=== PATIENT | female | born 1955 | race Caucasian/White ===

== ENCOUNTER 2016-07-13 12:26 | Day surgery (SDC) | payer OTHER ==
[~2016-07-13] VITALS: Ht 154.9 cm; Wt 77.0 kg
[~2016-07-13 12:26] MED LIST: NO HOME MEDICATIONS; ONDA4TAB11 PO; RANI150T9 PO
[2016-07-13] MEDS ORDERED: TRAMADOL (13:05)
[2016-07-13] MEDS ORDERED: FAMOTIDINE (13:05)
[2016-07-13] MEDS ORDERED: OMEPRAZOLE (13:05)
[2016-07-13 13:08] VITALS: Ht 154.9 cm; Wt 77.0 kg
[2016-07-13 13:49] VITALS: BP 145/69; PULSE 70; RESP 14
[2016-07-13] MEDS ORDERED: PROPOFOL 40 ML ONE (14:11)
[2016-07-13] MEDS ORDERED: PROPOFOL 20 ML ONE ×2 (14:49)
[2016-07-13 16:00] VITALS: BP 136/60; PULSE 60; RESP 12
--- NOTE | 2016-07-13 16:03 | GILP ---
DATE OF PROCEDURE: 07/13/2016 NAME OF PROCEDURES: 1. Esophagogastroduodenoscopy and biopsy. 2. Colonoscopy. SURGEON: Jordan Khoury MD PREOPERATIVE DIAGNOSES: 1. Chronic heartburn. 2. Screening colonoscopy. POSTOPERATIVE DIAGNOSES: 1. Gastroesophageal reflux disease. 2. Hiatal hernia. 3. Gastritis with erosions. 4. Gastric nodule in the antrum and biopsies were taken for histopathology. 5. Colonoscopy all the way to the cecum. 6. Internal hemorrhoids. 7. No colon neoplasm was identified. INDICATION FOR THE PROCEDURE: Ms. Kerry Jackson is a 61-year-old female patient who had chronic heartburn, not responding to therapy. She also needed screening colonoscopy. The procedures and possible complications were well explained to the patient, she understood and con sented to the procedure. DESCRIPTION OF PROCEDURE: Under the influence of anesthesia, the gastroscope was carefully introduc ed into the esophagus and under direct vision, it was advanced to the stomach and through the pyloru s into the duodenal bulb and descending duodenum. FINDINGS: ESOPHAGUS: The patient had gastroesophageal reflux disease. STOMACH: She had gastritis with erosions. She also had a nodule in the gastric antrum and biopsies were taken for histopathology. DUODENUM: Normal. The colonoscope was carefully introduced in the rectum and under direct vision, it was advanced all the way to the cecum. FINDINGS: The patient had internal hemorrhoids. No colon neoplasm was identified. She tolerated the procedures very well and there was no complication from the procedures. At the en d of the procedures, she was awake with stable vital signs and she was discharged home to the care o f her family. IMPRESSION: 1. Gastroesophageal reflux disease. 2. Gastritis with erosions. 3. Nodule in the gastric antrum and biopsies were taken for histopathology. 4. Colonoscopy all the way to the cecum. 5. Internal hemorrhoids. 6. No colon neoplasm was identified. PLAN: 1. Continue omeprazole and Pepcid. 2. Await histopathology report. 3. Next screening colonoscopy in 10 years. Dictated By: JORDAN ALBARRAN/JAY Conf#: [id number] DID#: [id number] CC: JORDAN KHOURY MD;*EndCC*
[2016-07-13 16:15] VITALS: BP 114/72; PULSE 66; RESP 12
== END 2016-07-13 17:32 | disposition home or self-care (01) ==
LOC: GIL 12:26
PROVIDERS: ATTEND Internal Medicine Gastroenterology
DX: Z12.11 Encounter for screening for malignant neoplasm of colon (principal); K29.50 Unspecified chronic gastritis without bleeding; K21.9 Gastro-esophageal reflux disease without esophagitis; K44.9 Diaphragmatic hernia without obstruction or gangrene; K29.60 Other gastritis without bleeding; K64.8 Other hemorrhoids; F41.9 Anxiety disorder, unspecified
CPT/HCPCS: 43239; 45378; 88305; 88312; Z7610

== ENCOUNTER 2017-01-18 19:14 | Emergency (ER) | payer OTHER ==
[~2017-01-18] VITALS: Ht 162.6 cm; Wt 80.7 kg
[~2017-01-18 19:14] MED LIST changes: +FAMOTIDINE; -NO HOME MEDICATIONS; +OMEPRAZOLE; -ONDA4TAB11 PO; -RANI150T9 PO; +TRAMADOL
[2017-01-18 19:20] VITALS: Ht 162.6 cm; Wt 80.7 kg
[2017-01-18] MEDS ORDERED: ALBUTEROL 0.083% (NEB) 2.5 MG/3 ML AMP HHN STA (21:17)
--- NOTE | 2017-01-18 21:21 | ERD ---
ER Documentation Chief Complaint Chief Complaint cough x 2 months HPI 61-year-old female presents emergency department for cough and sometimes with clear phlegm for the past 2 months. Stated that she saw her primary care physician who prescribed her with azithromycin, Flonase, TheraFlu, pro-air but she is not relieved with his medications. She is asking for a antibiotic shot, breathing treatment. Denies headache, dizziness, blurry vision, neck pain, throat pain, difficulty swallowing, shoulder pain, chest pain, chest pressure, back pain, abdominal pain, nausea, vomiting, constipation, diarrhea, loss of bowel bladder control, change in bowel bladder habits, recent travel, recent long travel, difficulty breathing when lying flat, fever, chills. ROS All systems reviewed and are negative except as per history of present illness. Medications Home Meds Active Scripts Albuterol Sulfate* (Albuterol Sulfate* Neb) 0.083%-3 Ml Neb, 2.5 MG NEB Q4 Y for SHORTNESS OF BREATH, #30 EA Prov:BIANCAJACQUESAFRSHAD 01/18/17 Ibuprofen* (Motrin*) 800 Mg Tab, 800 MG PO Q8 Y for PAIN AND OR ELEVATED TEMP, # 30 TAB Prov:FARSHAD RAY 01/18/17 Acetaminophen* (Tylophen*) 500 Mg Capsule, 1 CAP PO Q6H Y for PAIN AND OR ELEVATED TEMP, #20 CAP Prov:FARSHAD RAY 01/18/17 Albuterol Sulfate* (Proair HFA*) 8.5 Gm Hfa.aer.ad, 2 PUFF INH Q4, #1 INHALER Prov:BIANCAJACQUESFARSHAD 01/18/17 Amoxicillin/Potassium Clav (Amox-Clav 875-125 mg Tablet) 875-125 mg Tab, 1 TAB PO BID for 7 Days, #14 TAB Prov:FARSHAD RAY 01/18/17 Reported Medications [Famotidine] No Conflict Check 07/13/16 [Tramadol] No Conflict Check 07/13/16 [Omeprazole] No Conflict Check 07/13/16 Allergies Allergies: Coded Allergies: No Known Allergy (Verified Allergy, Unknown, 04/25/09) PMhx/Soc History of Surgery: Yes () Anesthesia Reaction: No Hx Neurological Disorder: No Hx Respiratory Disorders: No Hx Cardiac Disorders: No Hx Psychiatric Problems: Yes (ANXIETY) Hx Miscellaneous Medical Probl: Yes (CHRONIC PAIN) Hx Alcohol Use: No Hx Substance Use: No Hx Tobacco Use: No Physical Exam Vitals Vital Signs Date Time Temp Pulse Resp B/P Pulse Ox O2 Delivery O2 Flow Rate FiO2 01/18/17 22:44 97.7 80 20 137/65 99 Room Air 01/18/17 21:46 86 20 97 21 01/18/17 19:20 99.4 79 20 159/67 98 Physical Exam Const: Well-appearing but in mild distress due to her cough. Head: Atraumatic Eyes: Normal Conjunctiva ENT: Normal External Ears, Nose and Mouth. Throat: Uvula is midline not displaced. Tonsils are +1 bilaterally without redness and without exudates. Bilateral ears: TM is not erythematous. No bleeding. No discharge. No hearing loss bilaterally. Neck: Full range of motion..~ No meningismus. Resp: There is mild wheezing bilaterally. Cardio: Regular rate and rhythm, no murmurs Abd: Soft, non tender, non distended. Normal bowel sounds Skin: No petechiae or rashes Back: No midline or flank tenderness Ext: No cyanosis, or edema Neur: Awake and alert Psych: Normal Mood and Affect Results 24 hrs Current Medications Medications (Trade) Dose Ordered Sig/Ike Route PRN Reason Start Time Stop Time Status Last Admin Dose Admin Methylprednisolone Sodium Succinate (Solu-Medrol) 125 mg ONCE ONCE IM 01/18/17 21:30 01/18/17 21:31 DC 01/18/17 21:42 Albuterol (Proventil 0.083% (Neb)) 5 mg ONCE STAT N 01/18/17 21:17 01/18/17 21:19 DC 01/18/17 21:46 Ipratropium Anderson (Atrovent 0.02% (Neb)) 0.5 mg ONCE ONCE HHN 01/18/17 21:30 01/18/17 21:31 DC 01/18/17 21:46 Procedures/MDM Chest treatment: Solu-Medrol IM x-ray: No evidence for active cardiopulmonary disease. Treatment: Albuterol and Atrovent breathing treatment. Reevaluation: Patient stated that she feels much better this time. Respirations even and unlabored. Lung sounds are clear to auscultation. Differential: Low suspicion for pneumonia, bronchospasm, sepsis given the vital signs and chest x-ray result, relief of treatment. Final diagnosis: Bronchitis. Prescription: Augmentin. Pro-air. Prednisone. Follow up with PCP in the next 24-48 hours. Come back here in the emergency department for any new symptoms or any worsening of symptoms. All questions and concerns are answered. Patient verbalized understanding and agreed with the plan of care. Dynamically stable on discharge. Departure Diagnosis: Primary Impression: Cough Additional Impressions: Bronchitis Sinusitis Condition: Stable Additional Instructions: Follow up with PCP in the next 24-48 hours. Come back here in the emergency department for any new symptoms or any worsening of symptoms. All questions and concerns are answered. Patient verbalized understanding and agreed with the plan of care. FARSHAD RAY Jan 18, 2017 21:21
[2017-01-18] MEDS ORDERED: METHYLPREDNISOLONE 125 MG INJ IM ONE (21:30)
[2017-01-18] MEDS ORDERED: IPRATROPIUM (NEB) 0.5 MG/2.5 ML AMP HHN ONE (21:30)
--- NOTE | 2017-01-18 21:56 | RADRPT ---
PROCEDURE: Two-view XR Chest. CLINICAL INDICATION: cough TECHNIQUE: Frontal and lateral chest x-ray was obtained. COMPARISON: Chest x-ray February 19, 2013 FINDINGS: Heart is not enlarged. Mediastinum is not widened. No hilar mass is present. Lungs are clear of any infiltrates. There is no effusion or pneumothorax. IMPRESSION: No evidence for active cardiopulmonary disease. .Archie Pool MD, MD Date Time Electronically viewed and signed by .Archie Pool MD, on 01/18/2017 21:56 .A/
[2017-01-18] MEDS ORDERED: ALBU8.5H3 INH (22:19)
[2017-01-18] MEDS ORDERED: AMOX1TAB10 PO (22:19)
[2017-01-18] MEDS ORDERED: ALBU2.5V3 NEB (22:20)
[2017-01-18] MEDS ORDERED: ACET500C5 PO (22:20)
[2017-01-18] MEDS ORDERED: IBUP800T25 PO (22:20)
[2017-01-18 22:44] VITALS: BP 137/65; PULSE 80; RESP 20; TEMP 97.7
== END 2017-01-18 22:45 | disposition home or self-care (01) ==
LOC: FTE 19:14
DX: J20.9 Acute bronchitis, unspecified (principal); J32.9 Chronic sinusitis, unspecified
CPT/HCPCS: 71020; 94664; 96372; J2930; Z7502; Z7610

== ENCOUNTER 2017-11-04 22:52 | Emergency (ER) | END 2017-11-05 02:12 | disposition home or self-care (01) ==

== ENCOUNTER 2017-11-06 14:35 | Emergency (ER) | END 2017-11-06 17:22 | disposition home or self-care (01) ==